=== PATIENT | female | born 1955 | race Two or more races ===

== ENCOUNTER 2022-08-31 17:51 | Emergency (ER) | payer OTHER ==
[~2022-08-31] VITALS: Ht 152.4 cm; Wt 59.0 kg
[2022-08-31] MEDS ORDERED: IV NS 0.9% 500 ML BAG IV ONE (18:00)
[2022-08-31] MEDS ORDERED: ONDANSETRON HCL/PF 4 MG/2 ML VIAL IVP ONE (18:00)
--- NOTE | 2022-08-31 18:05 | NUR ---
c/o abd pain and dizziness sinice yesterday
--- NOTE | 2022-08-31 18:20 | NUR ---
director of labor relations at bedside .
--- NOTE | 2022-08-31 18:30 | NUR ---
established IV line right AC 20g infusing
[2022-08-31] MEDS ORDERED: ONDANSETRON HCL/PF 4 MG/2 ML VIAL ONE (18:51)
[2022-08-31 19:04] LABS: CALCIUM, SERUM 8.7 mg/dL (8.5-10.1); CREATININE 0.8 mg/dL (0.6-1.3)
[2022-08-31 19:10] LABS: ALBUMIN 3.4 g/dL (3.4-5.0); BILIRUBIN,DIRECT 0.3 mg/dL (0.0-0.2); BILIRUBIN,TOTAL 1.4 mg/dL (0.2-1.0); TOTAL PROTEIN, SERUM 7.5 g/dL (6.4-8.2)
--- NOTE | 2022-08-31 19:25 | NUR ---
REPORT RECEIVED FROM RAYMOND HERNANDEZ. PT IS [id number]. CAME EARLIER WITH CC OF DIZZINESS. WITH IV LINE ON RIGHT AC G20. PT ABLE TO PROVIDE URINE FOR TESTING. SENT TO LAB. ATTACHED TO MONITOR. VITALS CHECKED.
[2022-08-31 19:55] LABS: BASOPHILS % (AUTO) 0.3 % (0.0-2.0); EOSINOPHILS % (AUTO) 3.7 % (0.0-6.0); HEMATOCRIT 39 % (33-45); HEMOGLOBIN 12.8 g/dL (11.5-14.8); LYMPHOCYTES # (AUTO) 2.7 K/uL (0.8-4.8); LYMPHOCYTES % (AUTO) 38.6 % (20.0-44.0); MEAN CORPUSCULAR HGB CONC 33 g/dl (31.0-36.0); MEAN CORPUSCULAR VOLUME 89 fL (82-100); MONOCYTES # (AUTO) 0.6 K/uL (0.1-1.30); MONOCYTES % (AUTO) 8.3 % (2.0-12.0); NEUTROPHILS # (AUTO) 3.4 K/uL (1.8-8.9); NEUTROPHILS % (AUTO) 49.1 % (43.0-81.0); PLATELET COUNT (AUTO) 166 K/uL (150-450); RED BLOOD CELL COUNT(AUTO) 4.43 MIL/uL (4.0-5.2); WHITE BLOOD COUNT (AUTO) 6.9 K/uL (4.3-11.0)
--- NOTE | 2022-08-31 20:04 | NUR ---
URINE SPECIMEN SENT TO LAB
--- NOTE | 2022-08-31 20:42 | NUR ---
MARY OF GALLBLADDER DONE AT BEDSIDE
--- NOTE | 2022-08-31 20:42 | NUR ---
XRAY DONE AT BEDSIDE
[2022-08-31 21:57] LABS: BILIRUBIN,URINE NEGATIVE (NEGATIVE); COLOR,URINE YELLOW (YELLOW); LEUKOCYTE ESTERASE ,URINE SMALL (NEGATIVE); NITRITE, URINE NEGATIVE (NEGATIVE); PROTEIN,URINE TRACE mg/dl (NEGATIVE); UGLUCOSE NEGATIVE (NEGATIVE); UROBILINOGEN,URINE 0.2 EU/dL (0.2)
[2022-08-31] MEDS ORDERED: ONDA4TAB5 PO (22:58)
[2022-08-31] MEDS ORDERED: FAMO-131 PO (22:58)
[2022-08-31] MEDS ORDERED: MAG HYDROX/AL HYDROX/SIMETH 30 ML UDC PO ONE (23:00)
[2022-08-31] MEDS ORDERED: FAMOTIDINE/PF INJ 20 MG/2 ML VIAL IV ONE ×2 (23:00→23:12)
[2022-08-31] MEDS ORDERED: LIDOCAINE VISCOUS 2% UD 15 ML UDC MM ONE (23:00)
[2022-08-31] MEDS ORDERED: LIDOCAINE VISCOUS 2% UD 15 ML UDC ONE (23:11)
[2022-08-31] MEDS ORDERED: MAG HYDROX/AL HYDROX/SIMETH 30 ML UDC ONE (23:11)
--- NOTE | 2022-08-31 23:35 | NUR ---
PATIENT WAS ABOUT TO BE DISCHARGE AND WALKING IN THE BLOCK WAY WHEN PATIENT EXPERIENCED FACIAL NUMBNESS AND TINGLING SENSATION OF THE LEFT SIDE ARM AND LEG. PT WALKED BACK TO BED ASSISTED BY PULPWOOD CUTTER AND PLACED COMFORTABLY IN BED.
--- NOTE | 2022-08-31 23:40 | NUR ---
CODE STROKE ACTIVATED
--- NOTE | 2022-08-31 23:42 | NUR ---
NIHSS COMPLETED 2342H
--- NOTE | 2022-08-31 23:42 | NUR ---
PT TAKEN TO CT VIA GONZALES
--- NOTE | 2022-08-31 23:42 | NUR ---
RN FIRE EQUIPMENT INSPECTOR IN ER WITH [employer]
--- NOTE | 2022-08-31 23:46 | NUR ---
TELEMED NEURO REQUEST ACTIVATED
--- NOTE | 2022-08-31 23:53 | NUR ---
NEUROLOGIST ON THE PHONE WITH DR ESTES
--- NOTE | 2022-08-31 23:54 | NUR ---
PT RETURNED TO ER BED [address]
--- NOTE | 2022-09-01 00:02 | NUR ---
TELE NEURO ASSESSMENT IN PROCESS
[2022-09-01 00:09] LABS: BACTERIA,URINE Rare /HPF (None Seen); RBC,URINE 0-2 /HPF (0-2); SQUAMOUS EPITHELIAL CELL,UR Few /HPF (None Seen)
[2022-09-01] MEDS ORDERED: IOHEXOL-350 100 ML VIAL IV ONE ×2 (00:15→01:40)
[2022-09-01] MEDS ORDERED: CT SWABBABLE VALVE TRANS SET 1 EA INFUS.SET MC ONE (00:16)
[2022-09-01] MEDS ORDERED: IV NS 0.9% 250 ML IV ONE (00:16)
--- NOTE | 2022-09-01 00:21 | NUR ---
BROUGHT PT BACK AGAIN TO CT DEPT FOR CT ANGIO
--- NOTE | 2022-09-01 00:22 | NUR ---
SPOKE TO [facility] VILLEGAS. REC'D VERBAL AUH TO KEEP THE PT FOR TELE OBSERVATION
[2022-09-01] MEDS ORDERED: ASPIRIN 81 MG TAB.CHEW PO ONE (00:30)
[2022-09-01] MEDS ORDERED: ASPIRIN 325 MG TABLET ONE (01:06)
--- NOTE | 2022-09-01 01:32 | NUR ---
PATIENT CAN MOVE UPPER AND LOWER EXTREMITIES WITH MINIMUM WEAKNESS.
--- NOTE | 2022-09-01 01:35 | NUR ---
PATIENT CLAIMED THAT SHE CAN SEE CLEARLY NOW COMPARED TO LAST NIGHT.
--- NOTE | 2022-09-01 03:12 | NUR ---
paged dr Yao for neurosurgery consult
--- NOTE | 2022-09-01 03:33 | NUR ---
CALLED DR BARNES AND SENT IMAGES TO HIM. AWAITING FOR HIS CALL BACK.
--- NOTE | 2022-09-01 04:11 | NUR ---
called [facility] transfer [facility] and spoke to tatum to initiate transfer for higher LOC
--- NOTE | 2022-09-01 04:21 | NUR ---
FAXED FACESHEET AND CLINICALS TO [facility] AT [phone]
--- NOTE | 2022-09-01 04:30 | NUR ---
ASSISTED PATIENT TO BEDPAN
--- NOTE | 2022-09-01 05:00 | NUR ---
COVID SWAB DONE AND SENT TO LAB
[2022-09-01 05:13] VITALS: BP 119/73
--- NOTE | 2022-09-01 05:19 | NUR ---
LIZBET GALEANA PT GOT ACCPETED AT [facility] UNDER CARE OF DR. CAIO MANTILLA . GING TO ICU RM [id number]. # FOR REPORT: [phone]
--- NOTE | 2022-09-01 05:40 | NUR ---
[facility] TEAM AT THE BED SIDE TO TRANSFER PT TO [facility]
--- NOTE | 2022-09-01 05:40 | NUR ---
RN GAVE REPORT TO [facility] & EMT AT PT'S BEDSIDE TO TRANSFER PT TO [facility].
--- NOTE | 2022-09-01 05:45 | NUR ---
REPORT GIVEN TO RAYMOND BACA OF [facility] TRANSPORT OF [facility]
--- NOTE | 2022-09-01 06:04 | NUR ---
REPROT GIVEN TO [facility] RAYMOND ESTES.
--- NOTE | 2022-09-01 06:20 | NUR ---
pt was transferred to [facility] by CCT
== END 2022-09-01 06:20 | disposition short-term general hospital (02) ==
LOC: ER 17:51 → UNDOADMIN 09-01 00:24 → TRANSITION 09-01 00:24 → UNDODISIN 09-01 06:20 → ER 09-01 06:20
DX: I63.531 Cerebral infarction due to unspecified occlusion or stenosis of right posterior cerebral artery (principal); R29.705 NIHSS score 5; I21.4 Non-ST elevation (NSTEMI) myocardial infarction; Z20.822 Contact with and (suspected) exposure to COVID-19; I10 Essential (primary) hypertension; R10.13 Epigastric pain; R55 Syncope and collapse; Z95.810 Presence of automatic (implantable) cardiac defibrillator
CPT/HCPCS: 76705; 70450; 93005 ×2; 71045; 85025; 80048; 83690; 80076; 81001; 36415; 84484; 82962; 99291; 70498; 87426; 70496; 71275; 87086; 85730; J3490 ×2; J2405; J7040; J7050; Q9967 ×2; G0378